=== PATIENT | female | born 1970 | race Hispanic/Latino ===

== ENCOUNTER 2022-07-16 10:47 | Emergency (ER) | payer OTHER ==
[~2022-07-16] VITALS: Ht 149.9 cm; Wt 81.6 kg
[~2022-07-16 10:47] MED LIST: DICYCLOMINE HCL20 MG PO; ONDANSETRON ODT4 MG PO
[2022-07-16 11:34] LABS: BASOPHILS % 0.4 % (0.0-1.0); EOSINOPHILS # (AUTO) 0.1 (0.0-0.4); EOSINOPHILS % 1.3 % (0.0-6.0); HEMATOCRIT 50.2 % (34.2-44.1); HEMOGLOBIN 15.6 g/dL (12.0-16.0); LYMPHOCYTES # (AUTO) 1.4 (1.0-3.2); LYMPHOCYTES % 25.7 % (18.0-39.1); MEAN CORPUSCULAR HEMOGLOBIN 30.8 pg (28-32); MEAN CORPUSCULAR HGB CONC 31.1 g/dL (31-35); MONOCYTES # (AUTO) 0.3 (0.2-0.8); MONOCYTES % 6.1 % (4.4-11.3); NEUTROPHILS # (AUTO) 3.6 (2.1-6.9); NEUTROPHILS % 66.5 % (38.7-80.0); PLATELET COUNT 191 x10e3/uL (140-360); RED BLOOD COUNT 5.07 x10e6/uL (3.6-5.1); RED CELL DISTRIBUTION WIDTH 11.9 % (11.7-14.4)
[2022-07-16 12:00] LABS: ALBUMIN 4.3 g/dL (3.5-5.0); ALBUMIN/GLOBULIN RATIO 1.5 (0.8-2.0); ANION GAP 15.1 mmol/L (8-16); CALCIUM 9.3 mg/dL (8.4-10.2); CREATININE, SERUM 0.64 mg/dL (0.57-1.11); POTASSIUM 4.1 mmol/L (3.5-5.1)
[2022-07-16 12:07] LABS: CREATINE KINASE MB 0.8 ng/mL (0-5.0)
[2022-07-16] MEDS: ALBUTEROL/IPRATROPIUM 3 ML NEB NEB ONE (12:30)
[2022-07-16] MEDS: DEXAMETHASONE SOD PHOS 10 MG/1 ML VIAL IV ONE (13:06)
[2022-07-16 13:40] VITALS: BP 134/84
== END 2022-07-16 13:43 | disposition home or self-care (01) ==
LOC: ER 10:56
DX: R09.02 Hypoxemia (principal); J45.909 Unspecified asthma, uncomplicated; M32.9 Systemic lupus erythematosus, unspecified; M41.9 Scoliosis, unspecified; Z20.822 Contact with and (suspected) exposure to COVID-19
CPT/HCPCS: 36415; 71045; 80053; 82550; 82553; 83605; 83880; 84484; 85025; 87040; 94799; 99284; J1100; U0002

== ENCOUNTER 2024-12-18 18:10 | Emergency (ER) | payer MEDICARE, OTHER ==
[~2024-12-18] VITALS: Ht 149.9 cm; Wt 86.2 kg
[2024-12-18 18:58] LABS: CORONAVIRUS COVID-19 AG NEGATIVE (NEGATIVE); INFLUENZA A AG NEGATIVE (NEGATIVE); INFLUENZA B AG NEGATIVE (NEGATIVE); STREPTOCOCCUS GRP A ANTIGEN NEGATIVE (NEGATIVE)
[2024-12-18] MEDS ORDERED: BENZONATATE200 MG PO (19:11)
[2024-12-18] MEDS ORDERED: MEDROL4 M2 PO (19:11)
[2024-12-18] MEDS: METHYLPREDNISOLONE SOD SUCC 125 MG/2ML VIAL IM ONE (19:16)
[2024-12-18 19:21] VITALS: PULSE 93; RESP 16; TEMP 98.9; O2SAT 92
== END 2024-12-18 19:23 | disposition home or self-care (01) ==
LOC: ER 18:15
DX: R06.02 Shortness of breath (principal); J04.0 Acute laryngitis; R05.9 Cough, unspecified; R09.81 Nasal congestion; M32.9 Systemic lupus erythematosus, unspecified; J45.909 Unspecified asthma, uncomplicated; M19.09 Primary osteoarthritis, other specified site; Z11.52 Encounter for screening for COVID-19
CPT/HCPCS: 71045; 83518; 87070; 87428; 99283; J2919